=== PATIENT | female | born 1995 | race Caucasian/White ===

== ENCOUNTER 2024-05-31 12:01 | Inpatient (IN) | payer MEDICAID ==
[~2024-05-31] VITALS: Ht 160 cm; Wt 59.0 kg
[2024-05-31 12:01] VITALS: BP_SYST 152; PULSE 116; RESP 18; TEMP 97.7; O2SAT 98
[2024-05-31 12:30] VITALS: BP_SYST 122; PULSE 65; RESP 18; TEMP 97.8; O2SAT 98
[2024-05-31] MEDS: KETOROLAC TROMETHAMINE 30 MG VIAL IM ONE (12:32)
[2024-05-31] MEDS: MORPHINE 4 MG INJ. 4 MG/ML VIAL IM ONE (18:45)
[2024-05-31] MEDS ORDERED: ACETAMINOPHEN 325 MG TABLET PO PRN (19:00)
[2024-05-31] MEDS: DEXAMETHASONE SOD PHOSPHATE 4 MG/ML VIAL IVP ONE (19:59)
[2024-05-31 20:12] LABS: BASOPHILS % (AUTO) 0.6 % (0.0-2.0); EOSINOPHILS % (AUTO) 0.4 % (0.0-4.0); HEMATOCRIT 41.9 % (36-48); HEMOGLOBIN 14.5 g/dL (12.0-16.0); LYMPHOCYTES # (AUTO) 1.3 K/uL (1.0-5.5); LYMPHOCYTES % (AUTO) 15.9 % (20.5-51.5); MEAN CORPUSCULAR HEMOGLOBIN 32 pg (27-31); MEAN CORPUSCULAR HGB CONC 35 % (32-36); MEAN CORPUSCULAR VOLUME 91 fL (79.0-98.0); MONOCYTES # (AUTO) 0.5 K/uL (0.0-1.0); MONOCYTES % (AUTO) 6.5 % (1.7-9.3); NEUTROPHILS # (AUTO) 6.4 K/uL (1.8-7.7); NEUTROPHILS % (AUTO) 76.6 % (40.0-70.0); RED BLOOD CELL COUNT(AUTO) 4.59 MIL/uL (4.2-6.2); WHITE BLOOD COUNT (AUTO) 8.4 K/uL (4.8-10.8)
[2024-05-31 20:24] LABS: PLATELET COUNT (AUTO) 300 K/uL (130-430)
[2024-05-31 20:26] LABS: ALBUMIN 4.6 g/dL (3.4-4.8); CALCIUM 9.5 mg/dL (8.4-11.0); CREATININE 0.64 mg/dL (0.55-1.30); TOTAL BILIRUBIN 0.5 mg/dL (0.0-1.0); TOTAL PROTEIN, SERUM 8.3 g/dL (6.4-8.3)
[2024-06-01] MEDS: HYDROcodone/ACETAMIN 5-325 MG TAB (NORCO/ VICODIN) PO PRN (01:26)
[2024-06-01 08:01] VITALS: BP_SYST 115; PULSE 99; RESP 17; TEMP 98.1; O2SAT 99
[2024-06-01 11:12] VITALS: BP_SYST 113; PULSE 58; RESP 16; TEMP 97.8; O2SAT 98
[2024-06-01 15:00] VITALS: BP_SYST 120; PULSE 69; RESP 16; TEMP 97.7; O2SAT 96
[2024-06-01] MEDS: KETOROLAC TROMETHAMINE 30 MG VIAL IVP PRN (15:11)
[2024-06-01] MEDS: ONDANSETRON HCL 4 MG/2 ML VIAL IVP PRN (15:12)
[2024-06-01 15:41] VITALS: BP_SYST 115; PULSE 77; RESP 18; TEMP 97.5; O2SAT 99
[2024-06-01 20:20] VITALS: BP_SYST 120; PULSE 51; RESP 18; TEMP 98.8; O2SAT 97
[2024-06-02] VITALS (7 sets, daily range): BP systolic 108–117; PULSE 56–72; RESP 17–18; TEMP 97.9–98.7; O2SAT 97–99
[2024-06-02] MEDS: LIDOCAINE PATCH 5% 1 EA TP ONE (12:04)
[2024-06-02] MEDS: IBUPROFEN 800 MG TABLET PO SCH (14:55)
[2024-06-02] MEDS: HYDROcodone/ACETAMIN 10-325 MG TAB PO PRN (14:56)
[2024-06-02] MEDS: CYCLOBENZAPRINE HCL 10 MG TABLET (FLEXERIL) PO SCH (14:56)
[2024-06-03] VITALS (7 sets, daily range): BP systolic 106–131; PULSE 55–86; RESP 16–17; TEMP 97.4–98.8; O2SAT 96–99
[2024-06-03] MEDS: LIDOCAINE PATCH 5% 1 EA TP SCH (09:11)
[2024-06-03 10:39] LABS: BASOPHILS % (AUTO) 0.6 % (0.0-2.0); EOSINOPHILS # (AUTO) 0.1 K/uL (0.0-0.4); EOSINOPHILS % (AUTO) 1.7 % (0.0-4.0); HEMATOCRIT 40.2 % (36-48); HEMOGLOBIN 13.6 g/dL (12.0-16.0); LYMPHOCYTES # (AUTO) 1.3 K/uL (1.0-5.5); MEAN CORPUSCULAR HEMOGLOBIN 31 pg (27-31); MEAN CORPUSCULAR HGB CONC 34 % (32-36); MEAN CORPUSCULAR VOLUME 93 fL (79.0-98.0); MONOCYTES # (AUTO) 0.5 K/uL (0.0-1.0); MONOCYTES % (AUTO) 7.7 % (1.7-9.3); NEUTROPHILS # (AUTO) 4.3 K/uL (1.8-7.7); PLATELET COUNT (AUTO) 268 K/uL (130-430); RED BLOOD CELL COUNT(AUTO) 4.34 MIL/uL (4.2-6.2); WHITE BLOOD COUNT (AUTO) 6.2 K/uL (4.8-10.8)
[2024-06-03 10:58] LABS: ALBUMIN 3.7 g/dL (3.4-4.8); CALCIUM 8.9 mg/dL (8.4-11.0); CREATININE 0.65 mg/dL (0.55-1.30); POTASSIUM 4.1 mmol/L (3.5-5.1); TOTAL BILIRUBIN 0.6 mg/dL (0.0-1.0); TOTAL PROTEIN, SERUM 7.1 g/dL (6.4-8.3)
[2024-06-04 00:37] VITALS: BP_SYST 106; PULSE 68; RESP 16; TEMP 98.1; O2SAT 99
[2024-06-04 08:05] VITALS: O2SAT 99
[2024-06-04] MEDS ORDERED: PSYL0.4C2 PO (10:44)
[2024-06-04] MEDS ORDERED: IBUP800T54 PO (10:44)
[2024-06-04] MEDS ORDERED: CYCL10TA25 PO (10:44)
[2024-06-04] MEDS ORDERED: LIDO700A30 TP (10:44)
[2024-06-04] MEDS ORDERED: DOCU-144 PO (10:44)
[2024-06-04 11:06] VITALS: BP_SYST 115; PULSE 77; RESP 16; TEMP 98.8; O2SAT 100
[2024-06-04] MEDS: PSYLLIUM HUSK 1 PKT PACKET PO ONE (12:33)
[2024-06-04] MEDS: DOCUSATE SODIUM 100 MG CAPSULE PO ONE (12:33)
[2024-06-04 15:41] VITALS: BP_SYST 117; PULSE 74; RESP 16; TEMP 98.6; O2SAT 98
[2024-06-04 15:52] VITALS: BP_SYST 115; PULSE 77; TEMP 97.6; O2SAT 99
[2024-06-04] MEDS ORDERED: DOCUSATE SODIUM 100 MG CAPSULE PO SCH (21:00)
[2024-06-04] MEDS ORDERED: PSYLLIUM HUSK 1 PKT PACKET PO SCH (21:00)
== END 2024-06-04 16:45 | disposition home or self-care (01) | DRG 347 ==
LOC: SED 12:01 → SMU 18:59
PROVIDERS: ADMIT Preventive Medicine Preventive Medicine/Occupational Environmental Medicine; ATTEND Preventive Medicine Preventive Medicine/Occupational Environmental Medicine
DX: M51.26 Other intervertebral disc displacement, lumbar region (principal); K59.00 Constipation, unspecified; M51.16 Intervertebral disc disorders with radiculopathy, lumbar region; M48.061 Spinal stenosis, lumbar region without neurogenic claudication; Z79.899 Other long term (current) drug therapy; W19.XXXD Unspecified fall, subsequent encounter
CPT/HCPCS: 36415; 72131; 72148; 80053; 85025; 96372; 96374; 97110-GP; 97112-GP; 97116-GP; 97530-GP; 97760-GP; 99285; J1100; J1885; J2270; J2405